=== PATIENT | male | born 1960 | race African-American/Black ===

== ENCOUNTER 2017-03-27 08:31 | Emergency (ER) | payer MEDICAID, OTHER ==
[~2017-03-27] VITALS: Ht 172.7 cm; Wt 118.0 kg
[2017-03-27 09:15] VITALS: BP 141/77
[2017-03-27] MEDS ORDERED: BACITRACIN ZINC OINT UDPKT TOP ONE (09:30)
[2017-03-27] MEDS ORDERED: LIDOCAINE HCL 1% 20ML VIAL (Pyxis) INJ INFIL ONE (09:30)
== END 2017-03-27 10:09 | disposition home or self-care (01) ==
LOC: ER 09:41
DX: L02.211 Cutaneous abscess of abdominal wall (principal); E11.9 Type 2 diabetes mellitus without complications
CPT/HCPCS: 10060; 99283; J3490; Z7610

== ENCOUNTER 2017-03-29 16:38 | Emergency (ER) | payer OTHER ==
[~2017-03-29] VITALS: Ht 172.7 cm; Wt 119.0 kg
[2017-03-29 16:50] VITALS: BP 134/79
== END 2017-03-29 18:14 | disposition home or self-care (01) ==
LOC: ER 16:39
DX: Z48.01 Encounter for change or removal of surgical wound dressing (principal); E11.9 Type 2 diabetes mellitus without complications; Z93.3 Colostomy status
CPT/HCPCS: 99282

== ENCOUNTER 2023-05-06 22:37 | Emergency (ER) | payer OTHER ==
[~2023-05-06] VITALS: Ht 175.3 cm; Wt 100.0 kg
[2023-05-07 00:34] LABS: BASOPHILS % 0.4 % (0.0-2.0); HEMATOCRIT. 41.3 % (42.0-52.0); HEMOGLOBIN. 13.1 g/dL (14.0-18.0); LYMPHOCYTES % 11.6 % (20.0-50.0); MEAN CORPUSCULAR HEMOGLOBIN 24.3 pg (28.0-32.0); MEAN CORPUSCULAR VOLUME 76.9 fL (80.0-94.0); MEAN PLATELET VOLUME 12.3 fl (7.4-10.4); MONOCYTES % 5.8 % (2.0-8.0); NEUTROPHILS % 80.2 % (40.0-76.0); PLATELET 187 x1000/uL (130-400); RED BLOOD CELL COUNT 5.37 mill/uL (4.7-6.1); RED CELL DISTRIBUTION WIDTH 15.7 % (11.6-14.6)
[2023-05-07 00:41] LABS: CHLORIDE 103 mEq/L (98-107)
[2023-05-07] MEDS ORDERED: IPRATROPIUM BROMIDE (0.02%) 0.5MG/2.5ML NEB HHN STA (02:13)
[2023-05-07] MEDS ORDERED: ALBUTEROL (0.083%) 2.5MG/3ML NEB HHN STA (02:13)
[2023-05-07 03:45] VITALS: BP 148/55
== END 2023-05-07 03:50 | disposition home or self-care (01) ==
LOC: ER 22:51
DX: J18.9 Pneumonia, unspecified organism (principal); J98.01 Acute bronchospasm; J44.9 Chronic obstructive pulmonary disease, unspecified; E11.9 Type 2 diabetes mellitus without complications; E78.00 Pure hypercholesterolemia, unspecified; I10 Essential (primary) hypertension; Z93.3 Colostomy status
CPT/HCPCS: 36415; 71045; 80053; 83605; 83880; 84484; 85025; 93005; 94640; 99285; Z7610

== ENCOUNTER 2023-05-08 04:38 | Emergency (ER) | payer OTHER ==
[~2023-05-08] VITALS: Ht 182.9 cm; Wt 115.0 kg
[2023-05-08 04:43] VITALS: BP 137/84
== END 2023-05-08 05:36 | disposition left against medical advice (07) ==
LOC: ER 04:38
DX: Z53.21 Procedure and treatment not carried out due to patient leaving prior to being seen by health care provider (principal)
CPT/HCPCS: 99281

== ENCOUNTER 2023-05-08 11:32 | Emergency (ER) | payer OTHER ==
[~2023-05-08] VITALS: Ht 175.3 cm; Wt 77.0 kg
[2023-05-08 11:35] VITALS: BP 167/79
== END 2023-05-08 13:07 | disposition left against medical advice (07) ==
LOC: ER 12:06
DX: R06.02 Shortness of breath (principal); R05.9 Cough, unspecified
CPT/HCPCS: 93005; 99283